=== PATIENT | female | born 1990 | race Caucasian/White ===

== ENCOUNTER 2025-02-17 15:38 | Emergency (ER) | payer OTHER, SELFPAY ==
[2025-02-17 16:09] VITALS: BP 104/55; PULSE 64; RESP 16; TEMP 37; O2SAT 99; BMI 20.1
--- NOTE | 2025-02-17 16:26 | ED_ITS ---
<Statement entered by Seth Gonzalez, DO - 02/18/25 07:48>
--- NOTE | 2025-02-17 16:26 | ED.GENADULT ---
HPI - General Adult General Chief complaint: Blood/Body fluid exposure Stated complaint: blood exposure Time Seen by Provider: 02/17/25 16:17 History of Present Illness HPI narrative: Ms. 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 Patient states that she was working in the lab and had a tray with blood specimen on top of an analyzer, she accidentally knocked the tray towards herself in the blood splashed onto her left hand, she was wearing protective gloves and a lab coat. Reports that she possibly felt a splash in her right eye however it may have also been her eyelash, she did not flush her eye. Patient is up-to-date on her Tdap and hepatitis-B vaccines. The blood specimen was an L&D patient here at this hospital, unknown hep C/B/HIV status. Related Data Allergies Allergy/AdvReac Type Severity Reaction Status Date / Time No Known Drug Allergies Allergy Verified 02/17/25 16:13 Review of Systems Review of Systems ROS Unobtainable: All systems reviewed & are unremarkable except as noted in HPI and below Exam Narrative Exam Narrative: GENERAL: 34 year old patient appears stated age. Well-developed patient, in no acute distress. HEAD: Atraumatic. Normocephalic. EYES: No scleral icterus. No injection or drainage. NECK: Trachea midline. Cervical ROM intact. CARDIOVASCULAR: Regular rate RESPIRATORY: ?Nonlabored respirations. ?Speaking in clear, full sentences. NEURO: AOx3. ?Clear speech. ?Moves all 4 extremities appropriately. SKIN: No rash or erythema of visible areas. Initial Vital Signs Initial Vital Signs: Vital Signs Temperature 98.6 F 02/17/25 16:09 Pulse Rate 64 02/17/25 16:09 Respiratory Rate 16 02/17/25 16:09 Blood Pressure 104/55 L 02/17/25 16:09 Pulse Oximetry 99 02/17/25 16:09 Oxygen Delivery Method Room Air 02/17/25 16:09 Course Orders Ordered: ED Orders 02/17/25 16:40 Alanine Aminotransferase Stat HIV 1 & 2 Ab/Ag 4th Gen Combo Stat Hep C Virus Ab w/Reflex Quant Stat Hepatitis Acute Panel Stat Vital Signs Vital signs: Vital Signs - 8 hr 02/17/25 16:09 Temperature 98.6 F Pulse Rate 64 Respiratory Rate 16 Blood Pressure 104/55 L Pulse Oximetry 99 Oxygen Delivery Method Room Air Medical Decision Making Medical Records Medical records narrative: None available for review Lab Data Labs: Lab Results 02/17/25 Range/Units 16:40 ALT 20 (<35) IU/L MDM Narrative Medical decision making narrative: 34 year old female with no reported past medical history 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 Differential diagnosis includes but is not limited to accidental exposure to blood, etc. On exam patient is in no acute distress, nontoxic appearing, vital signs appropriate. She had a patient's blood splash onto her gloves/coat, there may have been exposure into the eye however she is unsure. Encourage patient to flush eye with saline. She would like to proceed with baseline blood exposure testing. Hepatitis panel, ALT, HIV pending, advised to follow up with the Employee Health for further management. Discussed with the patient that the patient whose blood splattered on her can also be evaluated if she consents to evaluate for HIV/Hep B/Hep C status. Advised patient to follow up with PCP, employee health, discussed ER return precautions. Patient verbalized understanding of all information agreeable with the plan. She is stable for discharge home all questions answered. Discharge Plan Departure Patient Disposition: Home Clinical Impression: Employee exposure to body fluids Instructions: DI for Accidental Exposure to Body Fluids Activity Restrictions/Additional Instructions: Dear Ms. Villegas, Thank you for coming to the emergency department. I am very sorry that you had exposure to blood at work today. We have obtained your baseline lab work. Please follow up with employee [facility] for further testing as needed. Please return to the ER if you have any concerns. Please follow up with your primary care doctor within the next 2-3 days for ER follow-up. (If you do not have a PCP you can call [phone]. ?to schedule an appointment with an [facility] Primary Care Provider) IF YOU DEVELOP ANY NEW OR WORSENING SYMPTOMS, RETURN TO THE ER! Please read the attached instructions, they highlight more specific treatments and interventions for you at home. Thank you for letting me participate in your care, Negra Briones PA-C Stand Alone Forms: Patient Portal/API
[2025-02-17 17:38] LABS: Alanine Aminotransferase 20 IU/L (<35)
[2025-02-17 18:51] LABS: HIV 1 & 2 Ab/Ag 4th Gen Combo NEGATIVE (NEGATIVE); Hep C Virus Ab w/Reflex Quant NEGATIVE s/c (NEGATIVE)
[2025-02-19 02:07] LABS: Hepatitis A Antibody IgM Negative (Negative); Hepatitis B Core Antibody IgM Negative (Negative); Hepatitis C Antibody Non Reactive (Non Reactive)
== END 2025-02-17 16:48 | disposition home or self-care (01) ==
PROVIDERS: Emergency Provider Physician Assistant
DX: Z77.21 Contact with and (suspected) exposure to potentially hazardous body fluids (principal)
CPT/HCPCS: 80074; 84460; 86803; 87389; 99281; 99283